=== PATIENT | female | born 1975 | race Caucasian/White ===

== ENCOUNTER 2020-06-29 14:47 | Emergency (ER) | payer MEDICAID, SELFPAY ==
[2020-06-29 15:04] VITALS: BP 132/87; PULSE 116; RESP 18; TEMP 36.8; O2SAT 96; BMI 51.5
--- NOTE | 2020-06-29 17:21 | XRR_ITS ---
PROCEDURE INFORMATION: Exam: XR Chest Exam date and time: 06/29/2020 5:23 PM Age: 45 years old Clinical indication: Cough and dyspnea; Additional info: Dyspnea/cough TECHNIQUE: Imaging protocol: XR of the chest Views: 1 view. COMPARISON: No relevant prior studies available. FINDINGS: Lungs: The lungs are clear. Pleural spaces: Unremarkable. No pleural effusion. No pneumothorax. Heart/Mediastinum: Unremarkable. No cardiomegaly. Bones/joints: Unremarkable. XR/XR chest 1V portable [id number] IMPRESSION: Normal study.
--- NOTE | 2020-06-29 17:22 | ECG_ITS ---
[facility] Test Date: 2020-06-29 Pat Name: Michelle Guerrero Department: Room: Gender: Female Touch Up Painter: : 1975 Requested By: Gerardo Lin Order Number: [id number] Isabelle MD: Viktor Hernandez M.D. Measurements Intervals [place] Rate: 112 P: 34 OR: 165 QRS: 1 QRSD: 97 T: 19 QT: 323 QTc: 442 Interpretive Statements SINUS TACHYCARDIA LOW QRS VOLTAGE IN PRECORDIAL LEADS [QRS DEFLECTION < 1.0 mV IN CHEST LEADS] POSSIBLE ANTERIOR MYOCARDIAL INFARCTION , PROBABLY OLD [30 ms Q WAVE IN V3/V4, OR R < 0.2 mV IN V4] No previous ECG available for comparison Electronically Signed On 06-29-2020 19:12:21 CDT by Viktor Hernandez M.D. [id number]
--- NOTE | 2020-06-29 17:40 | CTR_ITS ---
PROCEDURE INFORMATION: Exam: CT Abdomen And Pelvis With Contrast Exam date and time: 06/29/2020 5:46 PM Age: 45 years old Clinical indication: Nausea; Abdominal pain; Prior surgery; Surgery type: Gb, ; Additional info: Abd pain TECHNIQUE: Imaging protocol: Computed tomography of the abdomen and pelvis with contrast. Radiation optimization: All CT scans at this facility use at least one of these dose optimization techniques: automated exposure control; mA and/or kV adjustment per patient size (includes targeted exams where dose is matched to clinical indication); or iterative reconstruction. Contrast material: OMNI 300; Contrast volume: 95 ml; Contrast route: INTRAVENOUS (IV); COMPARISON: No relevant prior studies available. RADIATION DOSE METRICS: Total DLP (mGy-cm): 1665.76 FINDINGS: Liver: The liver is mildly enlarged. No parenchymal lesion is seen. Gallbladder and bile ducts: The gallbladder has been removed. No biliary ductal dilatation. Pancreas: Normal. No ductal dilation. Spleen: Normal. No splenomegaly. Adrenal glands: Normal. No mass. Kidneys and ureters: Normal. No hydronephrosis. Stomach and bowel: No intestinal obstruction. No mass is detected. Appendix: No evidence of appendicitis. Intraperitoneal space: A large amount of peritoneal fluid is noted. No free air. Small hyperdense/mildly enhancing foci are present in the lower abdomen/pelvic peritoneal fluid. Mild omental nodularity is also seen in the left upper quadrant. Vasculature: Unremarkable. No abdominal aortic aneurysm. Lymph nodes: Unremarkable. No enlarged lymph nodes. Urinary bladder: Unremarkable as visualized. Reproductive: The uterus is normal in size. Neither ovary is clearly identified. Bones/joints: Unremarkable. No acute fracture. Soft tissues: A small umbilical hernia containing fluid is appreciated. Curvilinear focus of enhancement is observed in the herniated fluid, which is nonspecific. No definite intestine is detected. CT/CT abdomen pelvis w con* [id number] IMPRESSION: 1. Large volume peritoneal fluid. Enhancing peritoneal foci in the lower abdomen/pelvis and left upper quadrant omental nodularity likely represent peritoneal implants. Correlate with patient's history and consider peritoneal fluid sampling for further assessment. 2. Mild hepatomegaly. Radiation Dose CTDIVOL = (mGy): DLP = 1665.76 (mGy-cm)
--- NOTE | 2020-06-29 17:45 | W.ED.ABDPA2 ---
Documented by User: Gerardo Connell DO 06/30/20 06:55 HPI - Abdominal Pain General: Chief Complaint: Abdominal Pain Stated Complaint: Abd Pain and bulge in abd area Time Seen by Provider: 06/29/20 17:19 History of Present Illness: HPI narrative: 45-year-old female comes in complaining of 2 days abdominal pain. Patient has a palpable hard nodule supraumbilical. She states she knows she had a hernia has had it for years but last couple days got markedly more painful she has difficult time eating she is not eating since early this morning she has continued to have regular bowel movements. She denies any hematochezia melena hematemesis coffee-ground emesis. MD elicited complaint: abdominal pain Pertinent past history: other (Umbilical hernia) Onset (ago): day(s) (2) Pain Consistency: constant Location: Periumbilical Severity: severe Quality: cramping Radiation: none Migration to: no migration Exacerbating factors: nothing Associated Symptoms: Reports bloating, constipation, GI cramping, nausea and poor appetite; Denies anorexia, belching, change in bowel habits, change in stool character, chills, coffee ground emesis, diarrhea, dyspepsia, dysuria, excessive flatus, fever(s), heartburn, hematochezia, hematuria, hematemesis, fecal incontinence, loose stools, melena, syncope and vomiting Review of Systems Const: Denies: fever(s) ENMT: Denies: throat pain, ear or mastoid pain, nasal discharge or nasal congestion Card: Denies: syncope Resp: Denies: dyspnea, productive cough or non-productive cough GI: Reports: nausea, constipation, bloating and GI cramping; Denies: vomiting, hematemesis, coffee ground emesis, heartburn, diarrhea, belching, excessive flatus, fecal incontinence, change in bowel habits, change in stool character, hematochezia or melena : Denies: dysuria or hematuria Skin/Breast: Denies: rash or pruritus Physical Exam Const: COMMON NORMALS: no acute distress GENERAL APPEARANCE: cooperative and comfortable ORIENTATION/CONSCIOUSNESS: Yes awake, Yes oriented to person, Yes oriented to place and Yes oriented to time HENMT: COMMON NORMALS: normocephalic, atraumatic and hearing grossly normal bilaterally HEAD & SCALP: normocephalic and atraumatic Neck/C-Spine: COMMON NORMALS: no JVD Lymph: LYMPHATIC: no lymphadenopathy noted and no lymphedema noted Resp: COMMON NORMALS: normal respiratory effort, No retractions, No use of accessory muscles and clear to auscultation bilaterally AUSCULTATION: clear to auscultation bilaterally Cardio: COMMON NORMALS: no JVD, regular rate, regular rhythm and No murmurs present (Cardio) RATE: regular rate RHYTHM: regular rhythm GI: COMMON NORMALS: Soft to palpation and No hepatosplenomegaly present AUSCULTATION: Yes Hypoactive bowel sounds present PALPATION: Yes Soft to palpation, Yes Tenderness to palpation present (GI), No Guarding due to palpation present (GI) and Yes No hepatosplenomegaly present OTHER: Supraumbilical nodule that emanates from it. Umbilical hernia. It is firm exquisitely tender nonreducible. Extremity: COMMON NORMALS: normal to inspection, capillary refill normal, no clubbing, cyanosis or edema, no calf tenderness and no pedal edema Neuro: SENSORIUM/ORIENTATION: Yes oriented to person, Yes oriented to place and Yes oriented to time Skin: COMMON NORMALS: no rashes or lesions noted GENERAL SKIN EXAM: no rashes or lesions noted Course Vital Signs: Vital signs: Vital Signs Temperature 98.3 F 06/29/20 15:04 Pulse Rate 94 06/29/20 19:56 Respiratory Rate 16 06/29/20 19:56 Blood Pressure 124/78 06/29/20 19:56 Pulse Oximetry 100 06/29/20 19:56 MDM - Abdominal Pain MDM Narrative: Medical decision making narrative: Care turned over to Dr. Adkins at change of shift see his notes for diagnosis and final disposition Lab Data: Labs: Lab Results 06/29/20 06/29/20 06/29/20 Range/Units 18:25 18:25 18:25 WBC 9.4 (4.0-10.0) 10^3/ uL RBC 4.72 (4.1-5.3) 10^6/u L Hgb 11.9 (11.5-15.3) g/dL Hct 37.7 (37.0-47.0) % MCV 79.9 L (81-99) fL MCH 25.2 L (28.0-34.0) pg MCHC 31.6 (30.0-36.0) g/dL RDW 13.0 (12.1-15.1) % Plt Count 440 H (130-400) 10^3/c mm MPV 9.9 (7.4-10.4) fL Neut % (Auto) 68.2 % Lymph % (Auto) 23.6 % Cameron % (Auto) 6.7 % Eos % (Auto) 0.5 % Baso % (Auto) 0.6 % Neut # (Auto) 6.39 (1.8-7.7) 10^3/u L Lymph # (Auto) 2.2 (0.8-4.8) 10^3/u L Cameron # (Auto) 0.6 (0.2-0.9) 10^3/u L Eos # (Auto) 0.1 (0.0-0.8) 10^3/u L Baso # (Auto) 0.1 (0.0-0.1) 10^3/u L Nucleated RBC % (a uto) 0 % Nucleated RBCs # 0.0 /100WBC Sodium 135 L (136-145) mmol/L Potassium 3.8 (3.5-5.1) mmol/L Chloride 95 L (98-107) mmol/L Carbon Dioxide 28 (22-29) mmol/L Anion Gap 15.8 (5-19) BUN 10 (6-20) mg/dL Creatinine 0.5 (0.5-0.9) mg/dL GFR Calculation 133.4 H (90-130) mL/min Glucose 188 H (65-115) mg/dL Calculated Osmolal ity 284 L (285-295) mOsm/k g Calcium 9.0 (8.5-10.5) mg/dL Total Bilirubin 0.3 (0.15-1.2) mg/dL AST 11 (0-32) U/L ALT 12 (0-33) U/L Alkaline Phosphata se 117 H (35-105) IU/L Total Protein 7.2 (6.6-8.7) g/dL Albumin 3.4 L (3.5-5.2) g/dL Globulin 3.8 (1.3-4.6) g/dL Lipase 20 (13-60) U/L Urine Color Yellow (Yellow) Urine Appearance Clear (CLEAR) Urine pH 5 (5-7) Ur Specific Gravit y 1.010 (1.005-1.030) Urine Protein Neg (Negative) Urine Glucose (UA) Norm (Normal) Urine Ketones Negative (Negative) Urine Blood Neg (Negative) Urine Nitrate Negative (Negative) Urine Bilirubin Neg (Negative) Urine Urobilinogen Norm (Negative) mg/dL Ur Leukocyte Amy ase Negative (Negative) Discharge Plan Discharge Patient Disposition: Home Clinical Impression: Hernia, Ascites Abdominal pain Qualifiers: Abdominal location: generalized Qualified Code(s): R10.84 - Generalized abdominal pain Condition: Stable Prescriptions: New hydrocodone-acetaminophen 5-325 mg tablet 1 tab PO Q6H PRN (Reason: pain) Qty: 14 RF: 0 No Action trazodone 50 mg tablet 50 mg PO DAILY PRN (Reason: Anxiety) RF: 0 Discharge Orders: Discharge ED (Routine); Ordered 06/29/20 Ordered By: Margarita Adkins Referrals: Romero Davison MD [Physician] - 1-3 days Cody Bhatti MD [Physician] - 1-3 days Discharge Diet: Advance as tolerated Discharge Activity: Resume usual activity Patient Instructions: Umbilical Hernia (ED), Ascites (ED), Abdominal Pain (ED) Coding Level of Care Code ED Non Ferrous Material Handler for Chg Fwd Exam Comprehensive Documented by User: Margarita Adkins MD 06/29/20 20:05 HPI - Abdominal Pain General: Chief Complaint: Abdominal Pain Stated Complaint: Abd Pain and bulge in abd area Time Seen by Provider: 06/29/20 17:19 Physical Exam Const: COMMON NORMALS: no acute distress, patient oriented x3 and healthy appearing HENMT: COMMON NORMALS: normocephalic and atraumatic HEAD & SCALP: normocephalic and atraumatic Eye: COMMON NORMALS: Equal, round and reactive pupils present and EOMs intact bilaterally PUPIL: Yes Equal, round and reactive pupils present Neck/C-Spine: COMMON NORMALS: full ROM and supple Chest: COMMONS NORMALS: normal inspection of the chest and normal palpation of entire chest wall Resp: COMMON NORMALS: normal respiratory effort, No retractions, No use of accessory muscles and clear to auscultation bilaterally AUSCULTATION: clear to auscultation bilaterally Cardio: COMMON NORMALS: regular rate, regular rhythm and No murmurs present (Cardio) RATE: regular rate RHYTHM: regular rhythm GI: COMMON NORMALS: Soft to palpation PALPATION: Yes Soft to palpation OTHER: Abdominal hernia noted with fluid collection Extremity: COMMON NORMALS: normal to inspection and full ROM Neuro: COMMON NORMALS: patient oriented x3, moves all extremities and no focal motor deficits Psych: COMMON NORMALS: mental status grossly normal, Normal thought process present and cooperative THOUGHT PROCESS: Normal thought process present Skin: COMMON NORMALS: no rashes or lesions noted and no wounds GENERAL SKIN EXAM: no rashes or lesions noted Course Vital Signs: Vital signs: Vital Signs Temperature 98.3 F 06/29/20 15:04 Pulse Rate 94 06/29/20 19:56 Respiratory Rate 16 06/29/20 19:56 Blood Pressure 124/78 06/29/20 19:56 Pulse Oximetry 100 06/29/20 19:56 MDM - Abdominal Pain MDM Narrative: Medical decision making narrative: Patient presents here with abdominal pain likely from hernia along with ascites. She has no white count no signs of SBP. Will place her on pain meds and have her follow-up with Dr. Bhatti along with Dr. Davison. Informed her to very important she follows up as she likely needs to have ascitic fluid analyzed. She is to return to ER if she has any worsening symptoms. She understands and agrees to plan. Lab Data: Labs: Lab Results 06/29/20 06/29/20 06/29/20 Range/Units 18:25 18:25 18:25 WBC 9.4 (4.0-10.0) 10^3/ uL RBC 4.72 (4.1-5.3) 10^6/u L Hgb 11.9 (11.5-15.3) g/dL Hct 37.7 (37.0-47.0) % MCV 79.9 L (81-99) fL MCH 25.2 L (28.0-34.0) pg MCHC 31.6 (30.0-36.0) g/dL RDW 13.0 (12.1-15.1) % Plt Count 440 H (130-400) 10^3/c mm MPV 9.9 (7.4-10.4) fL Neut % (Auto) 68.2 % Lymph % (Auto) 23.6 % Cameron % (Auto) 6.7 % Eos % (Auto) 0.5 % Baso % (Auto) 0.6 % Neut # (Auto) 6.39 (1.8-7.7) 10^3/u L Lymph # (Auto) 2.2 (0.8-4.8) 10^3/u L Cameron # (Auto) 0.6 (0.2-0.9) 10^3/u L Eos # (Auto) 0.1 (0.0-0.8) 10^3/u L Baso # (Auto) 0.1 (0.0-0.1) 10^3/u L Nucleated RBC % (a uto) 0 % Nucleated RBCs # 0.0 /100WBC Sodium 135 L (136-145) mmol/L Potassium 3.8 (3.5-5.1) mmol/L Chloride 95 L (98-107) mmol/L Carbon Dioxide 28 (22-29) mmol/L Anion Gap 15.8 (5-19) BUN 10 (6-20) mg/dL Creatinine 0.5 (0.5-0.9) mg/dL GFR Calculation 133.4 H (90-130) mL/min Glucose 188 H (65-115) mg/dL Calculated Osmolal ity 284 L (285-295) mOsm/k g Calcium 9.0 (8.5-10.5) mg/dL Total Bilirubin 0.3 (0.15-1.2) mg/dL AST 11 (0-32) U/L ALT 12 (0-33) U/L Alkaline Phosphata se 117 H (35-105) IU/L Total Protein 7.2 (6.6-8.7) g/dL Albumin 3.4 L (3.5-5.2) g/dL Globulin 3.8 (1.3-4.6) g/dL Lipase 20 (13-60) U/L Urine Color Yellow (Yellow) Urine Appearance Clear (CLEAR) Urine pH 5 (5-7) Ur Specific Gravit y 1.010 (1.005-1.030) Urine Protein Neg (Negative) Urine Glucose (UA) Norm (Normal) Urine Ketones Negative (Negative) Urine Blood Neg (Negative) Urine Nitrate Negative (Negative) Urine Bilirubin Neg (Negative) Urine Urobilinogen Norm (Negative) mg/dL Ur Leukocyte Amy ase Negative (Negative) Imaging Data ^: CT Abd/Pel: Attestation: I personally reviewed and interpreted this imaging study as follows: Radiologist's impression: [address] [address] [address] Scan Report Signed Patient: Michelle Guerrero Unit #: [id number] : 1975 Age/Sex: 45 / F ADM Date: 06/29/20 Loc: ER Room/Bed: Attending Dr: Ordering Provider/Ordering MD: Gerardo Connell DO Date of Service: 06/29/20 Procedure(s): CT abdomen pelvis w con* [id number] Accession Number(s): [id number] Report Number: [id number] PROCEDURE INFORMATION: Exam: CT Abdomen And Pelvis With Contrast Exam date and time: 06/29/2020 5:46 PM Age: 45 years old Clinical indication: Nausea; Abdominal pain; Prior surgery; Surgery type: Gb, ; Additional info: Abd pain TECHNIQUE: Imaging protocol: Computed tomography of the abdomen and pelvis with contrast. Radiation optimization: All CT scans at this facility use at least one of these dose optimization techniques: automated exposure control; mA and/or kV adjustment per patient size (includes targeted exams where dose is matched to clinical indication); or iterative reconstruction. Contrast material: OMNI 300; Contrast volume: 95 ml; Contrast route: INTRAVENOUS (IV); COMPARISON: No relevant prior studies available. RADIATION DOSE METRICS: Total DLP (mGy-cm): 1665.76 FINDINGS: Liver: The liver is mildly enlarged. No parenchymal lesion is seen. Gallbladder and bile ducts: The gallbladder has been removed. No biliary ductal dilatation. Pancreas: Normal. No ductal dilation. Spleen: Normal. No splenomegaly. Adrenal glands: Normal. No mass. Kidneys and ureters: Normal. No hydronephrosis. Stomach and bowel: No intestinal obstruction. No mass is detected. Appendix: No evidence of appendicitis. Intraperitoneal space: A large amount of peritoneal fluid is noted. No free air. Small hyperdense/mildly enhancing foci are present in the lower abdomen/pelvic peritoneal fluid. Mild omental nodularity is also seen in the left upper quadrant. Vasculature: Unremarkable. No abdominal aortic aneurysm. Lymph nodes: Unremarkable. No enlarged lymph nodes. Urinary bladder: Unremarkable as visualized. Reproductive: The uterus is normal in size. Neither ovary is clearly identified. Bones/joints: Unremarkable. No acute fracture. Soft tissues: A small umbilical hernia containing fluid is appreciated. Curvilinear focus of enhancement is observed in the herniated fluid, which is nonspecific. No definite intestine is detected. CT/CT abdomen pelvis w con* [id number] IMPRESSION: 1. Large volume peritoneal fluid. Enhancing peritoneal foci in the lower abdomen/pelvis and left upper quadrant omental nodularity likely represent peritoneal implants. Correlate with patient's history and consider peritoneal fluid sampling for further assessment. 2. Mild hepatomegaly. EKG Data ^: EKG 1: Attestation: I personally reviewed and interpreted this EKG as follows: EKG interpretation date: 06/29/20 EKG interpretation time: 18:06 Interpretation: sinus tach hr [address] or t wave abnormalities qrs 97 qtc 389 Discharge Plan Discharge Patient Disposition: Home Clinical Impression: Hernia, Ascites Abdominal pain Qualifiers: Abdominal location: generalized Qualified Code(s): R10.84 - Generalized abdominal pain Condition: Stable Prescriptions: New hydrocodone-acetaminophen 5-325 mg tablet 1 tab PO Q6H PRN (Reason: pain) Qty: 14 RF: 0 No Action trazodone 50 mg tablet 50 mg PO DAILY PRN (Reason: Anxiety) RF: 0 Discharge Orders: Discharge ED (Routine); Ordered 06/29/20 Ordered By: Margarita Adkins Referrals: Romero Davison MD [Physician] - 1-3 days Cody Bhatti MD [Physician] - 1-3 days Discharge Diet: Advance as tolerated Discharge Activity: Resume usual activity Patient Instructions: Umbilical Hernia (ED), Ascites (ED), Abdominal Pain (ED) Coding Level of Care Code ED Non Ferrous Material Handler for Chg Fwd Exam Comprehensive
[2020-06-29] MEDS: iohexol 300 mg/mL 100 mL Btl IV (17:52)
[2020-06-29 18:32] LABS: Add Urine Microscopic? NO
[2020-06-29] MEDS: LORazepam 2 mg/mL INJ 1 mL 1 MG IVP (18:32)
[2020-06-29 18:34] VITALS: RESP 20; O2SAT 95
[2020-06-29] MEDS: HYDROmorphone 1 mg/mL INJ 1 mL IVP (18:34)
[2020-06-29 18:35] LABS: Bilirubin Urine Neg (Negative); Blood Urine Neg (Negative); Glucose Urine UA Norm (Normal); Ketones Urine Negative (Negative); Leukocyte Esterase Urine Negative (Negative); Nitrate Urine Negative (Negative); Protein Urine Neg (Negative); Urine Appearance Clear (CLEAR); Urine Color Yellow (Yellow); Urobilinogen Urine Norm (Negative); pH Urine 5 (5-7)
[2020-06-29 18:37] LABS: Basophils # 0.1 10^3/uL (0.0-0.1); Basophils % 0.6 %; Eosinophils # 0.1 10^3/uL (0.0-0.8); Eosinophils % 0.5 %; Hematocrit 37.7 % (37.0-47.0); Hemoglobin 11.9 g/dL (11.5-15.3); Lymphocytes # 2.2 10^3/uL (0.8-4.8); Lymphocytes % 23.6 %; Mean Corpuscular HGB Conc 31.6 g/dL (30.0-36.0); Mean Corpuscular Hemoglobin 25.2 pg (28.0-34.0); Mean Corpuscular Volume 79.9 fL (81-99); Mean Platelet Volume 9.9 fL (7.4-10.4); Monocytes # 0.6 10^3/uL (0.2-0.9); Monocytes % 6.7 %; Neutrophils # 6.39 10^3/uL (1.8-7.7); Neutrophils % 68.2 %; Nucleated Red Blood Cells % 0 %; Platelet Count 440 10^3/cmm (130-400); Red Blood Count 4.72 10^6/uL (4.1-5.3); White Blood Count 9.4 10^3/uL (4.0-10.0)
[2020-06-29 18:57] VITALS: BP 118/83; PULSE 104; RESP 18; O2SAT 95
[2020-06-29 18:58] LABS: Alanine Aminotransferase 12 U/L (0-33); Albumin Level 3.4 g/dL (3.5-5.2); Alkaline Phosphatase 117 IU/L (35-105); Anion Gap 15.8 (5-19); Aspartate Amino Transferase 11 U/L (0-32); Blood Urea Nitrogen 10 mg/dL (6-20); Carbon Dioxide 28 mmol/L (22-29); Chloride 95 mmol/L (98-107); Globulin 3.8 g/dL (1.3-4.6); Glomerular Filtration Rate 133.4 mL/min (90-130); Glucose 188 mg/dL (65-115); Lipase 20 U/L (13-60); Osmolality Calculated 284 mOsm/kg (285-295); Potassium 3.8 mmol/L (3.5-5.1); Sodium 135 mmol/L (136-145); Total Bilirubin 0.3 mg/dL (0.15-1.2); Total Protein 7.2 g/dL (6.6-8.7)
[2020-06-29 19:00] VITALS: BP 134/84; PULSE 93; RESP 14; O2SAT 98
[2020-06-29 19:56] VITALS: BP 124/78; PULSE 94; RESP 16; O2SAT 100
--- NOTE | 2020-06-30 09:33 | DCPLANNER ---
comsec manager had message to schedule a follow up appointment for patient with Dr. Bhatti at [facility] General Surgery for hernia. comsec manager emailed both Patti and Kalpana at [facility] general surgery. Patients information will be printed and reviewed. Clinic will call patient with appointment information. comsec manager also had message to schedule a follow up appointment for patient with Dr. Davison for ascites. comsec manager called the office of Dr. Davison, spoke with Mary, gave clinic patients appointment information. A follow up appointment was scheduled for July at 10:[address] Davison. Clinic will call patient with appointment information.
--- NOTE | 2020-07-07 07:58 | DCPLANNER ---
Patient had a follow up appointment scheduled for 07.02.[address] Davison at Internal Medicine - patient did attend appointment. Patient had a follow up appointment scheduled for 07.06.[address] Bhatti at [facility] Surgery - patient did attend appointment.
== END 2020-06-29 19:59 | disposition home or self-care (01) ==
PROVIDERS: Family Medicine; Emergency Provider Emergency Medicine
DX: K46.9 Unspecified abdominal hernia without obstruction or gangrene (principal); R18.8 Other ascites; R10.84 Generalized abdominal pain
CPT/HCPCS: 71045; 74177; 80053; 81003; 83690; 85025; 93005; 96374; 96375; 99284; J1170; J2060; Q9967

== ENCOUNTER 2020-07-03 09:35 | Outpatient (CLI) | payer MEDICAID, SELFPAY ==
[2020-07-03 09:19] VITALS: BMI 50.8
[2020-07-03 09:51] VITALS: BP 125/80; PULSE 116; RESP 20; TEMP 36.1; O2SAT 98
--- NOTE | 2020-07-03 10:15 | US_ITS ---
WS: [id number] ULTRASOUND ABDOMEN LIMITED CLINICAL INFORMATION: R18.0 - Malignant ascites COMPARISON: None. FINDINGS: Ultrasound performed for paracentesis marking. Moderate abdominal ascites. US/US abdomen limited [id number] IMPRESSION: Ultrasound performed for paracentesis marking.
[2020-07-03 10:26] LABS: INR 1.13 (0.8-1.2)
[2020-07-03 11:07] VITALS: BP 126/73; PULSE 94; RESP 18; O2SAT 96
[2020-07-03 11:36] LABS: Body Fluid Polynuclear #Cells 1.464; Body Fluid WBC 4519 /uL; Monocytes # Body Fluid 3.055
[2020-07-03 11:42] VITALS: BP 128/94; PULSE 100; RESP 18; O2SAT 98
[2020-07-03 12:08] LABS: Apprearance, Body Fluid CLOUDY
--- NOTE | 2020-07-03 12:08 | PM.ACPR ---
Acute Procedures Paracentesis: Time out performed: Yes Indication: Ascites Procedure: diagnostic paracentesis Location: RLQ Local anesthetic used: lidocaine 1% Amount of anesthesia used (ml): 10 Bedside ultrasound used: yes, Ascites confirmed and location marked Preparation: sterile prep and drape and 11 blade used to make dariel in skin Amount of fluid obtained (ml): 5,000 Fluid: cloudy Post procedure exam: awake, alert Patient tolerated procedure: well Complications: none
[2020-07-03 12:09] LABS: Albumin Body Fluid 2.9 g/dL; Amylase Body Fluid 165 U/L; Cholesterol Body Fluid 63 mg/dL (0-200); Color, Body Fluid PALE YELLOW; Fluid Alkaline Phos. 128 IU/L; LDH Body Fluid 205 U/L; PATH Referral YES; Total Protein Body Fluid 4.8 g/dL; Triglycerides Body Fluid 29 mg/dL (0-150); Uric Acid Body Fluid 6 mg/dL
== END 2020-07-03 09:36 | disposition home or self-care (01) ==
LOC: GILAB 09:37
PROVIDERS: Visit Provider Internal Medicine
DX: C80.1 Malignant (primary) neoplasm, unspecified (principal); R18.0 Malignant ascites
CPT/HCPCS: 36415; 49082; 76705; 80500; 82042; 82150; 82465; 82945; 83615; 83986; 84075; 84157; 84315; 84478; 84560; 85610; 87015; 87070; 87075; 87116; 87205; 87206; 87801; 88112; 88305; 89050

== ENCOUNTER → 2020-07-06 13:06 | Outpatient (BNVA) | payer MEDICAID, SELFPAY | PROVIDERS: Visit Provider Internal Medicine | DX: R18.0 Malignant ascites (principal) | CPT/HCPCS: 82378; 86301; 86304 ==

== ENCOUNTER → 2020-07-13 08:45 | Outpatient (BNVA) | payer MEDICAID, SELFPAY | PROVIDERS: Visit Provider Surgery | DX: K42.0 Umbilical hernia with obstruction, without gangrene (principal); R18.0 Malignant ascites | CPT/HCPCS: 87635 ==

== ENCOUNTER 2020-07-16 11:07 | Day surgery (SDC) | payer MEDICAID, SELFPAY ==
[2020-07-15 13:37] VITALS: BMI 46.3
[2020-07-16] VITALS (14 sets, daily range): BP systolic 124–188; BP diastolic 80–103; PULSE 56–120; RESP 14–18; TEMP 36.3–36.6; O2SAT 90–98
--- NOTE | 2020-07-16 11:38 | W.PM.OPSUD ---
Surgery/Procedure H&P Update DATE OF PROCEDURE: July 16, 2020 DATE H&P PERFORMED: 07/10/20 H&P UPDATE INFORMATION: I have reviewed H&P completed within last 30 days, I have examined patient prior to procedure and No changes to prior documentation PLANNED PROCEDURE: Operation Date: 07/16/20 12:50 Proposed Procedures p 12862 Laparoscopic possible open umbilical hernia repair k42.0(Not Applicable) - Cody Bhatti MD
--- NOTE | 2020-07-16 11:57 | ANES.PREANE2 ---
Pre-Anesthetic Assessment Pre-Anesthetic Assessment: Height/Weight: Height 1.63 m Weight 122.47 kg Preop Diagnosis: Ascites, elevated CA-125, umbilical hernia Proposed Procedure: Operation Date: 07/16/20 12:50 Proposed Procedures p 65164 Laparoscopic possible open umbilical hernia repair k42.0(Not Applicable) - Cody Bhatti MD Was Beta Sarika taken within 24 hours: N/A Was Clonidine taken within 24 hours: N/A Social: Social History: No alcohol and No tobacco Exam: Pre-Anes Outpt Exam: alert, oriented x 3, clear to auscultation bilaterally and regular rate & rhythm Airway: Submandibular: WNL Cervical ROM: WNL MP: 2 Pulmonary: Pulmonary: None reported CV/HEM: CV/HEM: None reported : : None reported Hepatic: Hepatic: None reported GI: GI: None reported Metabolic: Metabolic: None reported Musc/skel: Musc/skel: None reported Neuropsych: Neuropsych: Depression Anesthetic Plan: ASA status: 3 Anesthesia: General PFSH Anesthesia PFSH: Medical History (Updated 07/07/20 @ 00:00 by ) Anxiety Surgical History (Updated 07/06/20 @ 13:57 by Cody Bhatti MD) History of 2006 History of cholecystectomy 1996 History of tonsillectomy Social History (Updated 07/02/20 @ 11:02 by ALICIA Marshall) Smoking and tobacco status: former smoker Alcohol intake: current Alcohol intake frequency: holidays/special occasions only Adopted: No Marital status: Number of children: 4 service: No History of recent travel: No Data Anesthesia Cardiac Studies: No Data to Display
[2020-07-16] MEDS: sodium chloride 0.9% 1,000 ML 30 ML IV (12:33)
[2020-07-16 12:39] LABS: OR HCG Qualitative Urine Negative (Negative)
[2020-07-16] MEDS: vancomycin 1,000 MG in sodium chloride 0.9% 250 ML 250 MG IV (12:54)
--- NOTE | 2020-07-16 14:13 | P.OP_ITS ---
Operative Report Date of procedure: July 16, 2020 Pre-op Diagnosis: 1. Symptomatic umbilical hernia 2. Ascites 3. Elevated CA-125 of 641 Post-op Diagnosis: 1. Ascites 2. 1 cm umbilical hernia 3. Bilateral ovarian masses with peritoneal implants Procedure Done: Diagnostic laparoscopy with biopsy of left ovarian mass Open primary repair of umbilical hernia Drainage of 3 L of ascites Specimens removed/disposition: 1. Hernia sac 2. Left ovarian mass 3. Ascites for cytology Surgeon: Cody Bhatti Anesthesia: General Condition: stable Disposition: PACU Procedure: The patient was taken to the operating room and intubated under general anesthesia after IV antibiotic had been administered. The abdomen was prepped and draped in a sterile manner. Using a 15 blade a 3 cm infraumbilical curvilinear incision was made, subcutaneous was divided using electrocautery and the large hernia sac was dissected free from the surrounding subcutaneous tissue. While dissecting the hernia sac from the umbilicus there was an opening made in the skin within the umbilicus. The hernia sac was thickened and there was concern there might be a bowel loop within the sac. I therefore made a 2 cm incision in the right upper quadrant use a 15 blade, subcutaneous tissues divided using electrocautery and using Veress needle pneumoperitoneum was created and 5 mm port was placed using Optiview technique and 5 mm 30 degree scope was introduced. After confirming that there was no bowel within the hernia sac the hernia sac was opened, excised and sent to pathology. There was a necrotic fragment within the hernia sac. 10 mm port was placed in the hernia sac and examination of peritoneal cavity revealed ascites and peritoneal implants. There was bilateral adnexal masses noted and biopsies were obtained from the left ovarian mass. There was no significant bleeding. 3 L of ascites was drained. The fascia at the umbilical hernia was closed using [id number] 0 Vicryl suture, subcu tissues approximated using interrupted 3- 0 Vicryl suture and skin was closed with running subcuticular 4-0 Monocryl suture and surgical glue. The incision in the right upper quadrant was closed with 3-0 Vicryl , 4-0 Monocryl and surgical glue. The patient was extubated and transferred to recovery room in stable condition.
[2020-07-16] MEDS: fentaNYL 50 mcg/mL INJ 2mL IVP ×2 (14:39→14:44)
--- NOTE | 2020-07-16 14:47 | ANE.PACU2 ---
Inpatient post-anesthesia follow up: Airway intact: Yes Vital signs: Temperature 97.5 F Pulse Rate 93 Respiratory Rate 17 Blood Pressure 143/103 Pulse Oximetry 94 Oxygen Delivery Me thod Simple Mask Oxygen Flow Rate 8 Fraction of Inspir ed Oxygen Hydration adequate: Yes Nausea and vomiting: No Pain level: 4 Mental status: Baseline
--- NOTE | 2020-07-16 15:20 | SUR.PHASEII ---
DOCTOR REBECCA INFORMED OF PATIENT'S CONDITION.
[2020-07-16] MEDS: morphine 4 mg/mL SDV 1 mL 2 MG IVP (15:40)
== END 2020-07-16 16:28 | disposition home or self-care (01) ==
PROVIDERS: Visit Provider Surgery
PROC: (CPT 49320; 2020-07-16 12:40)
PROC: (CPT 49082; 2020-07-16 12:40)
DX: K42.9 Umbilical hernia without obstruction or gangrene (principal); R18.8 Other ascites; N83.202 Unspecified ovarian cyst, left side; F32.9 Major depressive disorder, single episode, unspecified; F41.9 Anxiety disorder, unspecified; Z87.891 Personal history of nicotine dependence
CPT/HCPCS: 49082; 49321; 49585; 84703; 88112; 88302; 88305; 96365; J1100; J2270; J2405; J2704; J2710; J3010; J3370; J3490; J7030; J7050

== ENCOUNTER 2020-10-24 22:17 | Emergency (ER) | payer MEDICAID, SELFPAY ==
[2020-10-24 22:57] VITALS: BP 107/82; PULSE 111; RESP 18; TEMP 36; O2SAT 97; BMI 46.8
--- NOTE | 2020-10-24 23:07 | W.ED.WOUNDLC ---
HPI - Wound/Laceration General: Chief Complaint: Wound/Laceration Stated Complaint: SURG SITE BROKE OPEN (10.20)/PORT PLACEMENT Time Seen by Provider: 10/24/20 23:06 History of Present Illness: HPI narrative: 45-year-old female had a port placed into her left chest wall on Monday. Patient comes in tonight due to dehiscence of the wound. Patient denies any fever or purulent drainage to the area. Patient denies any tenderness to the area. Review of Systems General: Reports: 10 or more systems reviewed and unremarkable except in HPI and below Skin/Breast: Reports: other (Wound dehiscence) [facility] ED PFSH: Medical History (Updated 10/24/20 @ 23:35 by LASHAUN Cuello) Anxiety Surgical History (Updated 07/16/20 @ 14:30 by Cody Bhatti MD) H/O laparoscopy (07/16/20) bilateral ovarian mass with ascites, peritoneal implants History of 2006 History of cholecystectomy 1996 History of tonsillectomy History of umbilical hernia repair (07/16/20) Social History (Updated 07/02/20 @ 11:02 by ALICIA Marshall) Smoking and tobacco status: former smoker Alcohol intake: current Alcohol intake frequency: holidays/special occasions only Adopted: No Marital status: Number of children: 4 service: No History of recent travel: No Physical Exam Const: COMMON NORMALS: no acute distress and patient oriented x3 GENERAL APPEARANCE: cooperative HENMT: COMMON NORMALS: normocephalic and Normal external nose present HEAD & SCALP: normal to inspection and normocephalic NOSE: Normal external nose present MOUTH: Normal oral and palatal mucosa present Eye: GENERAL EYE: appearance normal, both eyes and all related structures Neck/C-Spine: COMMON NORMALS: full ROM Lymph: LYMPHATIC: no lymphadenopathy noted Chest: COMMONS NORMALS: normal inspection of the chest Resp: COMMON NORMALS: normal respiratory effort EFFORT & INSPECTION: Yes able to speak in complete sentences Cardio: COMMON NORMALS: regular rate and regular rhythm RATE: regular rate RHYTHM: regular rhythm GI: COMMON NORMALS: non-tender Extremity: COMMON NORMALS: normal to inspection Neuro: COMMON NORMALS: patient oriented x3 and moves all extremities Psych: COMMON NORMALS: mental status grossly normal and cooperative Course Vital Signs: Vital signs: Vital Signs Temperature 96.8 F L 10/24/20 22:57 Pulse Rate 111 H 10/24/20 22:57 Respiratory Rate 18 10/24/20 22:57 Blood Pressure 107/82 10/24/20 22:57 Pulse Oximetry 97 10/24/20 22:57 MDM - Wound/Laceration MDM Narrative: Medical decision making narrative: Patient came in for wound dehiscence of a port placement site. On exam we note a open to centimeter area to the surgical area of the port placement. No redness or heat or tenderness is noted in the area. Wound is opened up approximately 8 mm. Differential diagnosis includes wound dehiscence, wound infection, injury. Patient denies any injury of hitting the wound or anything. The Steri-Strip where the wound had had seem to have come loose from the area. I cleaned the area with Betadine and saline. Betadine was allowed to dry to the area around the wound. I then closed the wound and adhered new Steri-Strips to the area. Then an OpSite was applied over the wound for further protection. I recommended the patient be monitored for fever and redness and tenderness to the site. Patient reported understanding and agreed to plan. Patient tolerated well. Discharge Plan Discharge Patient Disposition: Home Clinical Impression: Wound dehiscence Condition: Stable Prescriptions: No Action hydrocodone-acetaminophen 5-325 mg tablet 1 tab PO Q6H PRN (Reason: pain) Qty: 20 RF: 0 Zofran 4 mg tablet 4 mg PO Q6H PRN (Reason: nausea and vomiting) Qty: 20 RF: 0 Colace 100 mg capsule 100 mg PO BID Qty: 30 RF: 0 trazodone 50 mg tablet 50 mg PO DAILY PRN (Reason: Anxiety) RF: 0 hydrocodone-acetaminophen 5-325 mg tablet 1 tab PO Q6H PRN (Reason: pain) Qty: 14 RF: 0 Discharge Orders: Discharge ED (Routine); Ordered 10/24/20 Ordered By: Marv Jiang Referrals: Danna Thomas DO [Primary Care Provider] - Discharge Diet: Usual diet Discharge Activity: Increase activity as tolerated Patient Instructions: Opioid Safety, Wound Care (General) Activity Restrictions/Additional Instructions: Keep wound clean and dry. Allow dressing to come off on its own. Have someone reevaluate dressing in 3 to 5 days. Return to the emergency room for fever, increased redness and tenderness around the site, or purulent drainage. Coding Level of Care Code ED [employer] for Manjinder Rush
[2020-10-24 23:53] VITALS: PULSE 88; RESP 18; O2SAT 98
== END 2020-10-24 23:54 | disposition home or self-care (01) ==
PROVIDERS: Absent Provider Obstetrics & Gynecology Gynecologic Oncology; Emergency Provider Nurse Practitioner Family; PCP Family Medicine
DX: T81.32XA Disruption of internal operation (surgical) wound, not elsewhere classified, initial encounter (principal); Y83.8 Other surgical procedures as the cause of abnormal reaction of the patient, or of later complication, without mention of misadventure at the time of the procedure
CPT/HCPCS: 99282